=== PATIENT | male | born 1955 | race Caucasian/White ===

== ENCOUNTER 2025-08-30 05:45 | Emergency (ER) | payer BC ==
[2025-08-30] MEDS ORDERED: CEFAZOLIN 1 GM VIAL ONE (06:36)
[2025-08-30] MEDS ORDERED: predniSONE 20 MG TAB ONE (06:36)
== END 2025-08-30 07:20 | disposition home or self-care (01) ==
LOC: BURERS 05:45
DX: L03.114 Cellulitis of left upper limb (principal); I10 Essential (primary) hypertension
CPT/HCPCS: 96372; 99283; J0690; J1885; J7512